=== PATIENT | female | born 1980 | race Caucasian/White ===

== ENCOUNTER 2019-07-07 07:59 | Emergency (ER) | payer BC ==
[~2019-07-07] VITALS: Ht 162.6 cm; Wt 59.0 kg
[~2019-07-07 07:59] MED LIST: AMOXICILLIN 50500 MG PO; ERYTHROMYCIN E3.5 G1 OP; EXPECTORAN100 MG/5 M PO; NOHOMEMEDICATIONS; PATADAY2.5 ML OP; PENICILLIN VK500 MG PO; PERCOCET 5-3251 EACH PO; ULTRAM 50MG TAB50 MG PO; VIBRAMYCIN 100100 MG PO; XANAX XR2 MG PO; ZPAK PO
[2019-07-07 08:26] LABS: ABSOLUTE EOSINOPHILS 0.1 thou/uL (0.0-0.7); ABSOLUTE LYMPHOCYTES 1.3 thou/uL (0.8-5.3); ABSOLUTE MONOCYTES 0.3 thou/uL (0.0-1.2); ABSOLUTE NEUTROPHILS 3.2 thou/uL (1.6-8.1); BASOPHILS 0.2 %; EOSINOPHILS 2.1 %; HEMATOCRIT 36.5 % (37.0-47.0); HEMOGLOBIN 12.5 gm/dL (12.0-15.0); LYMPHOCYTES 26.3 %; MCH 29.7 pg (26.0-34.0); MCHC 34.3 g/dL (28.0-37.0); MCV 86.4 fL (80.0-100.0); MONOCYTES 6.7 %; MPV 8.4 fl. (7.2-11.1); NUCLEATED RBCS 0 /100WBC; PLATELET COUNT* 213 thou/uL (150-400); POLYS 64.7 %; RBC 4.22 mil/uL (4.20-5.00); RDW-CV 13.5 % (10.5-14.5); WBC 4.9 thou/uL (4.0-11.0)
[2019-07-07 08:40] LABS: APTT 25.4 Seconds (25.0-31.3); PROTIME 10.1 Seconds (9.20-11.50)
[2019-07-07 08:55] LABS: URINE BILIRUBIN NEGATIVE (Negative); URINE BLOOD TRACE (Negative); URINE CLARITY CLEAR; URINE COLOR YELLOW; URINE GLUCOSE-RANDOM NEGATIVE (Negative); URINE KETONES NEGATIVE (Negative); URINE LEUKOCYTES-REFLEX NEGATIVE (Negative); URINE NITRITE-REFLEX NEGATIVE (Negative); URINE PROTEIN NEGATIVE (Negative); URINE SPECIFIC GRAVITY >= 1.030 (1.005-1.030); URINE UROBILINOGEN 0.2 E.U./dl (0.2-1.0)
[2019-07-07 09:40] LABS: CALCIUM 8.4 mg/dL (8.5-10.1); CREATININE 0.7 mg/dL (0.6-1.3)
[2019-07-07 09:45] LABS: ALBUMIN 3.7 g/dL (3.4-5.0); MAGNESIUM 1.7 mg/dL (1.8-2.4); TOTAL BILIRUBIN 0.4 mg/dL (<0.1-1.0); TOTAL PROTEIN 7.2 g/dL (6.4-8.2)
[2019-07-07] MEDS ORDERED: BACTRIM DS TAB1 EAC1 PO (10:51)
[2019-07-07] MEDS ORDERED: NORCO 5-325 TA1 EAC1 PO (10:51)
[2019-07-07 11:03] VITALS: BP 111/57
--- NOTE | 2019-07-07 11:20 | EKG ---
[place] [address] ELECTROCARDIOGRAM REPORT Name: MERLIN STEPHENS [id number] Admission: 07/07/19 Attend Phys: Discharge: 07/07/19 Date of : 76 Report #: [id number] THIS REPORT FOR: //name// 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
--- NOTE | 2019-07-07 16:17 | EKG ---
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: : 1980 Requested By: Baljit Artis Order Number: [id number] MD: Damon Goldsmith Measurements Intervals [place] Rate: 55 P: 12 WV: 139 QRS: 58 QRSD: 92 T: 35 QT: 461 QTc: 441 Interpretive Statements Sinus rhythm Baseline wander in lead(s) V5,V6 Compared to ECG 07/07/2019 08:04:20 No significant changes Electronically Signed On 07-07-2019 16:17:06 CORE BAKER by Damon Goldsmith [email or web address] <ELECTRONICALLY SIGNED> By: Damon Goldsmith MD, [facility] 07/07/19 1617 [id number] 1024 Damon Goldsmith MD, [facility] /EPI
== END 2019-07-07 11:03 | disposition home or self-care (01) ==
LOC: M.ERS 07:59
PROVIDERS: Emergency Medicine Emergency Medical Services
DX: R07.89 Other chest pain (principal); R30.0 Dysuria; Z98.51 Tubal ligation status

== ENCOUNTER 2019-11-13 09:21 | Emergency (ER) | payer BC ==
[~2019-11-13] VITALS: Ht 167.6 cm; Wt 63.5 kg
[~2019-11-13 09:21] MED LIST changes: +BACTRIM DS TAB1 EAC1 PO; +NORCO 5-325 TA1 EAC1 PO
[2019-11-13] MEDS ORDERED: MECLIZINE HCL25 M1 PO (12:52)
[2019-11-13 13:12] VITALS: BP 105/51
== END 2019-11-13 13:13 | disposition home or self-care (01) ==
LOC: M.ERS 09:21
DX: R42 Dizziness and giddiness (principal); M54.5 Low back pain; M25.512 Pain in left shoulder; Z98.51 Tubal ligation status